=== PATIENT | male | born 1955 | race Caucasian/White ===

== ENCOUNTER → 2018-08-19 | Outpatient (CLI) | payer BC, MEDICARE ==
[~2018-08-19] MED LIST: ATOR20 PO; Aspirin EC81 MG; CELE200 PO; CEPH500 PO; CRUTCH USE; ESOM20 PO; FISH1000; Garlic1 EACH; HYDACE5 PO; HYDHCL25 PO; KETO10 PO; LIDO5TP TOP; Lisinopril2.5 MG; MELO7.5; Multiple Vitam1 EAC1; NAPR500; OMEP10ER; OXYACE5C; OXYACE5T PO; PARO20; PROM25 PO; Percocet 10-321 EACH; SERT100; SERT50 PO; Wheelchair
[2018-08-22 14:11] LABS: Stool Occult Bld Immuno 1 Negative (NEGATIVE); Stool Occult Bld Immuno 2 Negative (NEGATIVE)
== END | disposition home or self-care (01) ==
LOC: LAB EV 07:40 → LAB SHORT 07:40
PROVIDERS: Internal Medicine Gastroenterology
DX: D50.9 Iron deficiency anemia, unspecified (principal); R19.5 Other fecal abnormalities
CPT/HCPCS: 82274

== ENCOUNTER 2021-08-09 12:35 | Day surgery (SDC) | payer BC, MEDICARE ==
[~2021-08-09] VITALS: Ht 188 cm; Wt 103.4 kg
[2021-08-09] MEDS ORDERED: FLAX (13:22)
== END 2021-08-09 15:45 | disposition home or self-care (01) ==
LOC: ORSCSDS 12:35
PROVIDERS: Internal Medicine Gastroenterology
PROC: 0DB58ZX Excision of Esophagus, Via Natural or Artificial Opening Endoscopic, Diagnostic (ICD-10-PCS; principal; 2021-08-09 14:00)
DX: K22.70 Barrett's esophagus without dysplasia (principal); J44.9 Chronic obstructive pulmonary disease, unspecified; D50.9 Iron deficiency anemia, unspecified; K21.9 Gastro-esophageal reflux disease without esophagitis; G47.33 Obstructive sleep apnea (adult) (pediatric); E66.9 Obesity, unspecified; Z68.30 Body mass index [BMI] 30.0-30.9, adult; Z79.82 Long term (current) use of aspirin; Z79.899 Other long term (current) drug therapy
CPT/HCPCS: 88305; J2704; J7120

== ENCOUNTER → 2021-12-03 | Outpatient (CLI) | payer BC, MEDICARE ==
[~2021-12-03] MED LIST changes: +FLAX
[2021-12-03 09:34] LABS: BASOPHILS ABSOLUTE AUTO 0.07 K/mm3 (0.00-0.23); BASOPHILS PERCENT AUTO 1 % (0-2); EOSINOPHILS ABSOLUTE AUTO 0.21 K/mm3 (0.00-0.68); EOSINOPHILS PERCENT AUTO 3 % (0-6); Hematocrit 37.9 % (37.0-53.0); Hemoglobin 12.9 g/dL (13.5-17.5); IMMATURE GRAN ABSOLUTE AUTO 0.02 K/mm3 (0.00-0.10); IMMATURE GRAN PERCENT AUTO 0 % (0-1); LYMPHOCYTES ABSOLUTE AUTO 2.34 K/mm3 (0.84-5.20); LYMPHOCYTES PERCENT AUTO 28 % (21-46); MONOCYTES ABSOLUTE AUTO 1.13 K/mm3 (0.16-1.47); MONOCYTES PERCENT AUTO 14 % (4-13); Mean Corpuscular HGB 32.3 pg (26.0-34.0); Mean Corpuscular Volume 95 fL (80-100); Mean Platelet Volume 8.3 fL (9.1-12.4); NEUTROPHILS ABSOLUTE AUTO 4.58 K/mm3 (1.96-9.15); NEUTROPHILS PERCENT AUTO 55 % (41-73); Platelet Count 485 K/mm3 (150-400); RDW Coefficient Variation 14.9 % (11.7-14.2); White Blood Cell Count 8.35 K/mm3 (4.00-11.30)
[2021-12-03 09:36] LABS: Albumin, Blood 3.6 g/dL (3.4-5.0); Bilirubin, Total 0.4 mg/dL (0.1-1.0); Calcium, Blood 9.4 mg/dL (8.5-10.1); Creatinine, Blood 1.27 mg/dL (0.60-1.20); Globulin, Blood 3.6 g/dL (2.2-4.0); Total Protein, Blood 7.2 g/dL (6.4-8.2)
[2021-12-03 11:33] LABS: BODY FLUID RBC 0.179 M/mm3 (0-0); RBC Count, Synovial Fluid 179000 /mm3 (0-0); WBC Count, Synovial Fluid 3743 /mm3 (0-180)
[2021-12-03 12:39] LABS: Eos, Synovial Fluid 2 % (0-2); Lymphs, Synovial Fluid 10 % (0-15); Monocytes/Macrophages, Synovia 13 % (0-65); Neutrophils, Synovial Fluid 75 % (0-24)
[2021-12-03 12:40] LABS: Appearance, Synovial Fluid Hazy (Clear); Color, Synovial Fluid Red (None-P Yel)
== END | disposition home or self-care (01) ==
LOC: LAB 09:21 → LAB SHORT 09:21
PROVIDERS: Physician Assistant Medical
DX: M70.21 Olecranon bursitis, right elbow (principal); M25.521 Pain in right elbow
CPT/HCPCS: 80053; 85025; 89051

== ENCOUNTER → 2023-05-06 | Outpatient (CLI) | payer BC, MEDICARE ==
[2023-05-08 08:12] LABS: Stool Occult Bld Immuno 1 Negative (NEGATIVE)
== END ==
LOC: LAB SHORT 17:35 → LAB 17:35
PROVIDERS: Internal Medicine Gastroenterology
DX: Z12.11 Encounter for screening for malignant neoplasm of colon (principal)
CPT/HCPCS: 82274

== ENCOUNTER 2024-06-23 10:38 | Day surgery (SDC) | payer BC, MEDICARE ==
[~2024-06-23] VITALS: Ht 188 cm; Wt 95.2 kg
[~2024-06-23 10:38] MED LIST changes: +Lactated Ringer's 1,000 ML IV ONE
[2024-06-23] MEDS ORDERED: propofoL 20 ML IV ONE ×2 (11:16→11:40)
[2024-06-23] MEDS ORDERED: Lidocaine HCl 2% 10 ML SDA ONE (11:31)
[2024-06-23] MEDS ORDERED: CeFAZolin Sodium 1000 mg Vial ONE (11:39)
[2024-06-23] MEDS ORDERED: Lidocaine HCl 2% 10 ML SDA INJ ONE (11:54)
--- NOTE | 2024-06-23 13:03 | NUR ---
06/23/24 0722 Toby Plascencia PT INITIALLY SLEEPING AND DIFFICULT TO ROUSE IN SDU. HE LATER STATED THAT HE WAS TENSE IN PRE-OP DUE TO FEAR OF NEEDLES.
[2024-06-23 13:06] VITALS: BP 117/71
== END 2024-06-23 12:50 | disposition home or self-care (01) ==
LOC: ORSCSDS 10:38
PROVIDERS: Orthopaedic Surgery
PROC: 0X6S0Z3 Detachment at Right Ring Finger, Low, Open Approach (ICD-10-PCS; principal; 2024-06-23 12:15)
DX: S62.604A Fracture of unspecified phalanx of right ring finger, initial encounter for closed fracture (principal); I10 Essential (primary) hypertension; F41.9 Anxiety disorder, unspecified; F32.A Depression, unspecified; G47.33 Obstructive sleep apnea (adult) (pediatric); K21.9 Gastro-esophageal reflux disease without esophagitis; F17.210 Nicotine dependence, cigarettes, uncomplicated; Z79.82 Long term (current) use of aspirin; Z79.899 Other long term (current) drug therapy
CPT/HCPCS: J0690; J2003; J2704; J7120

== ENCOUNTER 2024-11-07 06:35 | Day surgery (SDC) | payer OTHER ==
[~2024-11-07] VITALS: Ht 188 cm; Wt 100.7 kg
[~2024-11-07 06:35] MED LIST changes: -Lactated Ringer's 1,000 ML IV ONE; +NS 500 ML IV ONE
[2024-11-07] MEDS ORDERED: TRELEGY ELLIPT1 EACH (07:13)
[2024-11-07] MEDS ORDERED: OXYCODONE-ACET1 EAC3 (07:14)
[2024-11-07] MEDS ORDERED: HYDHCL25 (07:15)
[2024-11-07] MEDS ORDERED: Dexamethasone Sod Phos 10 MG/ML 1ML VIAL ONE (07:33)
[2024-11-07] MEDS ORDERED: FentaNYL Citrate 50 MCG/ML 2 ML Injection ONE (07:41)
[2024-11-07] MEDS ORDERED: Midazolam HCl 1MG / ML 2ML Vial ONE (07:41)
[2024-11-07] MEDS ORDERED: NS 1,000 ML IV ONE (07:50)
[2024-11-07] MEDS ORDERED: Ondansetron HCl 2 MG / ML 2ML Vial ONE (07:56)
[2024-11-07] MEDS ORDERED: propofoL 20 ML IV ONE (08:13)
[2024-11-07 08:25] VITALS: BP 126/69
== END 2024-11-07 08:54 | disposition home or self-care (01) ==
LOC: ORSCSDS 06:35
PROVIDERS: Orthopaedic Surgery
PROC: 01N54ZZ Release Median Nerve, Percutaneous Endoscopic Approach (ICD-10-PCS; principal; 2024-11-07 08:00)
DX: G56.02 Carpal tunnel syndrome, left upper limb (principal); I10 Essential (primary) hypertension; G47.33 Obstructive sleep apnea (adult) (pediatric); K21.9 Gastro-esophageal reflux disease without esophagitis; Z79.899 Other long term (current) drug therapy; Z79.82 Long term (current) use of aspirin
CPT/HCPCS: J1100; J2250; J2405; J2704; J3010; J7040

== ENCOUNTER 2025-04-03 08:44 | Day surgery (SDC) | payer OTHER ==
[~2025-04-03] VITALS: Ht 180 cm; Wt 96.8 kg
[~2025-04-03 08:44] MED LIST changes: +ALBU90OI INH; +HYDHCL25; +IRON18 M1 PO; +LOSA50 PO; -Multiple Vitam1 EAC1; +Multiple Vitam1 EAC1 PO; -NS 500 ML IV ONE; +OMEP20ER PO; +OXYCODONE-ACET1 EAC3 PO; -PARO20; +PARO20 PO; +TRELEGY ELLIPT1 EACH INH; +ZESTORETIC 20-251 EA PO
[2025-04-03 09:33] VITALS: BP 138/79
--- NOTE | 2025-04-03 09:46 | NUR ---
History, Chart, Medications and Allergies reviewed before start of procedure.Patient confirms NPO status and agrees with scheduled surgery. Lungs clear T/O to Auscultation. Patient States Post-Procedure ride home has been arranged.
[2025-04-03] MEDS ORDERED: Benzocaine Oral Spray 0.5ML UD ONE (10:10)
--- NOTE | 2025-04-03 10:21 | NUR ---
04/03/25 1021 Ramón Ndiaye CONFIRMED AND REVIEWED H&P, MEDCICATIONS, ALLERGIES, MEDICAL HISTORY, RESPIRATORY HISTORY, VITAL SIGNS, 3-LEAD EKG, CONSENTS, AND PHYSICIAN ORDERS. PATIENT CONFIRMS NPO STATUS AND AGREES WITH SCHEDULED PROCEDURE. MONITOR INTACT WITH CONTINUOUS PULSE OXIMETRY, CAPNOGRAPHY, 3-LEAD EKG, INTERMITTENT BP. SUPPLEMENTAL O2 TO BE TITRATED THROUGHOUT PROCEDURE TO MAINTAIN O2 SATURATION ABOVE 90%. PATIENT DETERMINED TO BE ASA APPROPRIATE FOR PROPOFOL SEDATION PRIOR TO START OF PROCEDURE BY DR. MALDONADO
[2025-04-03 10:38] VITALS: BP 112/67
[2025-04-03 10:50] VITALS: BP 126/67
[2025-04-03 11:00] VITALS: BP 110/65
--- NOTE | 2025-04-03 11:08 | NUR ---
Discharge instructions reviewed with patient. Patient verbalizes understanding. Copy given to patient to take home. Pt awake, alert, and able to dress self independently, tolerating PO intake well. providing transportation home. IV removed. Lungs clear T/O to Auscultation. Patient States Post-Procedure ride home has been arranged, at bedside states is providing transporation. Discharged via wheelchair to private car for ride home.
== END 2025-04-03 11:15 | disposition home or self-care (01) ==
LOC: ORSCMMR 08:44 → ORD 09:30 → ORSCMMR 11:15
PROVIDERS: Internal Medicine Gastroenterology
PROC: 0DB48ZX Excision of Esophagogastric Junction, Via Natural or Artificial Opening Endoscopic, Diagnostic (ICD-10-PCS; principal; 2025-04-03 09:30)
PROC: 0DB58ZX Excision of Esophagus, Via Natural or Artificial Opening Endoscopic, Diagnostic (ICD-10-PCS; principal; 2025-04-03 09:30)
DX: K22.70 Barrett's esophagus without dysplasia (principal); K21.00 Gastro-esophageal reflux disease with esophagitis, without bleeding; E11.9 Type 2 diabetes mellitus without complications; I10 Essential (primary) hypertension; F32.A Depression, unspecified; E78.00 Pure hypercholesterolemia, unspecified; J44.9 Chronic obstructive pulmonary disease, unspecified; G47.33 Obstructive sleep apnea (adult) (pediatric); F41.0 Panic disorder [episodic paroxysmal anxiety]; Z79.899 Other long term (current) drug therapy
CPT/HCPCS: 82947; 88305; 88312; A9270; J2704; J7120